=== PATIENT | female | born 1945 | race Two or more races ===

== ENCOUNTER 2018-11-23 09:16 | Day surgery (SDC) | payer OTHER ==
[~2018-11-23 09:16] MED LIST: CEFTIN250 MG PO; INTEGRA PLUS C1 EACH PO; NABUMETONE750 MG PO; ORPH100T PO; OXYC1TAB9 PO; PEPCID40 MG PO; SYNTHROID50 MCG PO; XARELTO10 MG PO; ZOCOR PO
[2018-11-23] MEDS ORDERED: TRAM1TAB98 PO (13:07)
[2018-11-23] MEDS ORDERED: DUI500 PO (13:07)
== END 2018-11-23 14:51 | disposition home or self-care (01) ==
LOC: CIR.AMB 09:16
DX: M65.342 Trigger finger, left ring finger (principal)

== ENCOUNTER 2019-11-12 01:52 | Emergency (ER) | payer OTHER ==
[~2019-11-12] VITALS: Ht 154.9 cm; Wt 85.3 kg
[~2019-11-12 01:52] MED LIST changes: +DUI500 PO; +TRAM1TAB98 PO
[2019-11-12] MEDS ORDERED: CATAFLAN (02:12)
[2019-11-12] MEDS ORDERED: SIMVASTATIN80 MG (02:13)
[2019-11-12] MEDS ORDERED: MOBIC15 MG PO (03:36)
== END 2019-11-12 03:53 | disposition home or self-care (01) ==
LOC: ER 01:52
DX: M25.551 Pain in right hip (principal)

== ENCOUNTER 2020-09-08 12:14 | Emergency (ER) | payer OTHER ==
[~2020-09-08] VITALS: Ht 154.9 cm; Wt 84.4 kg
[~2020-09-08 12:14] MED LIST changes: +CATAFLAN; +MOBIC15 MG PO; +SIMVASTATIN80 MG
[2020-09-08] MEDS ORDERED: MECLIZINE HCL25 MG PO (16:22)
[2020-09-08] MEDS ORDERED: METOCLOPRAMIDE10 MG PO (16:22)
== END 2020-09-08 16:44 | disposition home or self-care (01) ==
LOC: ER 12:14
DX: R42 Dizziness and giddiness (principal); Z03.818 Encounter for observation for suspected exposure to other biological agents ruled out

== ENCOUNTER 2025-06-13 08:56 | Outpatient (CLI) | payer OTHER ==
[~2025-06-13 08:56] MED LIST changes: +MECLIZINE HCL25 MG PO; +METOCLOPRAMIDE10 MG PO
== END 2025-06-13 08:58 | disposition home or self-care (01) ==
LOC: SONOGRAMA 08:56
PROVIDERS: ATTEND Pathology Anatomic Pathology
DX: D34 Benign neoplasm of thyroid gland (principal); E07.89 Other specified disorders of thyroid; E04.9 Nontoxic goiter, unspecified